=== PATIENT | female | born 1990 | race African-American/Black ===

== ENCOUNTER 2016-12-10 18:33 | Emergency (ER) | payer SELFPAY | END 2016-12-11 02:00 | disposition left against medical advice (07) | LOC: ER 12-11 01:30 | DX: K92.0 Hematemesis (principal); Z53.21 Procedure and treatment not carried out due to patient leaving prior to being seen by health care provider ==

== ENCOUNTER 2024-10-22 14:41 | Emergency (ER) | payer MEDICAID ==
[~2024-10-22] VITALS: Ht 162.6 cm; Wt 64.0 kg
[2024-10-22 14:44] VITALS: O2SAT 98
[2024-10-22] MEDS: SODIUM CHLORIDE 0.9% 1,000 ML IV ONE (15:30)
[2024-10-22] MEDS: FAMOTIDINE 20MG/2ML VIAL IV STA (15:50)
[2024-10-22] MEDS: ONDANSETRON HCL 4MG/2ML INJ IV STA (15:51)
[2024-10-22 16:05] LABS: BASOPHILS % 0.4 % (0.0-2.0); EOSINOPHILS % 0.2 % (0.0-5.0); HEMATOCRIT. 47.3 % (36.0-48.0); HEMOGLOBIN. 16.7 g/dL (12.0-16.0); LYMPHOCYTES % 17.6 % (20.0-50.0); MEAN CORPUSCULAR HEMOGLOBIN 32.3 pg (28.0-32.0); MEAN CORPUSCULAR HGB CONC 35.3 g/dL (31.0-37.0); MEAN CORPUSCULAR VOLUME 91.4 fL (81.0-99.0); MEAN PLATELET VOLUME 8.5 fl (7.4-10.4); NEUTROPHILS % 72.8 % (40.0-76.0); PLATELET 359 x1000/uL (130-400); RED BLOOD CELL COUNT 5.17 mill/uL (4.2-5.4); RED CELL DISTRIBUTION WIDTH 12.6 % (11.6-14.6); WHITE BLOOD COUNT 10.3 x1000/uL (4.5-11.0)
[2024-10-22 16:07] LABS: CHLORIDE 95 mEq/L (98-107); SODIUM 140 mEq/L (136-145)
[2024-10-22 16:08] LABS: CALCIUM 10.5 mg/dL (8.7-10.4); CARBON DIOXIDE 27 mEq/L (21-32)
[2024-10-22 16:13] LABS: GLUCOSE 103 mg/dL (70-105); TROPONIN I HIGH SENSITIVITY 5 ng/L (3.0-34); UREA NITROGEN BLOOD 28 mg/dL (9-23)
[2024-10-22 16:14] LABS: CLARITY URINE CLOUDY (CLEAR); COLOR URINE DARK YELLOW (YELLOW); GLUCOSE URINE NEGATIVE (NEGATIVE); KETONES URINE 3+ (NEGATIVE); LEUKOCYTE ESTERASE URINE TRACE (NEGATIVE); NITRITE URINE NEGATIVE (NEGATIVE); OCCULT BLOOD URINE NEGATIVE (NEGATIVE); PH URINE 6.5 (4.5-8.0); PROTEIN URINE 1+ (NEGATIVE); SPECIFIC GRAVITY URINE 1.028 (1.005-1.030)
[2024-10-22 16:15] LABS: ALANINE AMINOTRANSFERASE 11 IU/L (10-49); ASPARTATE AMINOTRANSFERASE 15 IU/L (<34); BILIRUBIN DIRECT 0.4 mg/dL (<=3.0); BILIRUBIN TOTAL 1.3 mg/dL (0.1-1.0)
[2024-10-22 16:16] LABS: PROTEIN TOTAL 9.6 g/dL (6.0-8.3)
[2024-10-22 16:24] LABS: POTASSIUM 2.8 mEq/L (3.5-5.1)
[2024-10-22 17:04] LABS: BACTERIA URINE NONE SEEN; CALCIUM OXALATE CRYSTALS URINE 2+ /lpf; RBC URINE NONE SEEN /hpf (0-2); WBC URINE 0-2 /hpf (0-2)
[2024-10-22] MEDS: KCL 20MEQ/100ML X 2 FOR TOTAL KCL 40MEQ/200ML IV SCH (17:36)
[2024-10-22] MEDS: POTASSIUM CHLORIDE 30 MEQ in DEXT 5%/0.9% NACL 985 ML IV ONE (17:36)
[2024-10-22] MEDS: ACETAMINOPHEN 325MG TABLET PO ONE (19:13)
[2024-10-22 21:08] LABS: CHLORIDE 101 mEq/L (98-107); POTASSIUM 3.4 mEq/L (3.5-5.1); SODIUM 140 mEq/L (136-145)
[2024-10-22 21:09] LABS: CALCIUM 8.9 mg/dL (8.7-10.4); CARBON DIOXIDE 28 mEq/L (21-32)
[2024-10-22 21:14] LABS: CREATININE 0.8 mg/dL (0.6-1.0); GLUCOSE 91 mg/dL (70-105); UREA NITROGEN BLOOD 24 mg/dL (9-23)
[2024-10-22 21:16] LABS: ALANINE AMINOTRANSFERASE 8 IU/L (10-49); ASPARTATE AMINOTRANSFERASE 13 IU/L (<34); BILIRUBIN TOTAL 0.9 mg/dL (0.1-1.0); PROTEIN TOTAL 7.6 g/dL (6.0-8.3)
[2024-10-22] MEDS ORDERED: ONDA-239 PO (21:57)
[2024-10-22 22:02] VITALS: BP 123/74; PULSE 94; RESP 17; TEMP 37; O2SAT 99
== END 2024-10-22 22:07 | disposition home or self-care (01) ==
LOC: ER 14:41
DX: N28.1 Cyst of kidney, acquired (principal); R10.31 Right lower quadrant pain; E87.6 Hypokalemia
CPT/HCPCS: 99285; 96365; 96375; 76700; 71045; 96361; 80053; 81003; 81025; 83690; 85025; 84484; 36415; 93005; 80076; 80048; J3490; J2405; J3480; J7030; J7042